=== PATIENT | female | born 1950 | race African-American/Black ===

== ENCOUNTER 2024-11-13 09:51 | Inpatient (IN) | payer MEDICARE ==
[~2024-11-13] VITALS: Ht 153.9 cm; Wt 73.0 kg
[2024-11-13] VITALS (48 sets, daily range): BP systolic 79–145; BP diastolic 46–74; PULSE 78–119; RESP 21–39; TEMP 34.9–34.9724; O2SAT 94–100
[2024-11-13] MEDS: DEXT 5%/0.45% NACL KCL 20MEQ/L 1,000 ML IV ONE (10:15)
[2024-11-13] MEDS: DEXTROSE 50% WATER 50ML SYRINGE IV ONE ×3 (10:15→12:58)
[2024-11-13] MEDS: LEVOFLOXACIN 500MG PREMIX 100 ML IV NR (11:00)
[2024-11-13 11:33] LABS: MEAN PLATELET VOLUME 12.2 fl (7.4-10.4); RED BLOOD CELL COUNT 1.60 mill/uL (4.2-5.4); RED CELL DISTRIBUTION WIDTH 19.0 % (11.6-14.6)
[2024-11-13] MEDS: MORPHINE SULFATE 10 MG/ML INJ (NOT FOR IM USE) IV NR (11:34)
[2024-11-13 11:47] LABS: CREATININE 4.5 mg/dL (0.6-1.0)
[2024-11-13 11:48] LABS: UREA NITROGEN BLOOD 75 mg/dL (9-23)
[2024-11-13 11:49] LABS: ASPARTATE AMINOTRANSFERASE 62 IU/L (<34)
[2024-11-13 11:50] LABS: BILIRUBIN TOTAL 0.4 mg/dL (0.1-1.0); PROTEIN TOTAL 5.9 g/dL (6.0-8.3)
[2024-11-13 11:54] LABS: INR 1.9
[2024-11-13 11:58] LABS: HEMOGLOBIN. 4.8 g/dL (12.0-16.0)
[2024-11-13 11:59] LABS: HEMATOCRIT. 17.8 % (36.0-48.0)
[2024-11-13] MEDS ORDERED: CEFEPIME HCL 1000MG VIAL IM SCH (12:15)
[2024-11-13] MEDS: SODIUM BICARBONATE 8.4% 50MEQ/50ML SYR IV ONE ×3 (12:25→13:55)
[2024-11-13] MEDS: SODIUM CHLORIDE 0.9% (SEPSIS BOLUS) IV ONE (12:25)
[2024-11-13] MEDS: VANCOMYCIN 500 MG in DEXT 5% WATER 100 ML IV SCH (12:28)
[2024-11-13] MEDS: SODIUM BICARBONATE 8.4% 50MEQ/50ML SYR IV STA (12:28)
[2024-11-13] MEDS: INSULIN REGULAR (HUMULIN R) 1000UNITS/10ML VIAL IV ONE ×2 (12:42→12:57)
[2024-11-13] MEDS: SODIUM POLYSTYRENE SULFONATE 15 G/60 ML BOT PO ONE (12:45)
[2024-11-13] MEDS: CALCIUM CHLORIDE 1GM/10ML SYR IV ONE (12:58)
[2024-11-13] MEDS: CEFEPIME 1GM/50ML 50 ML IV SCH (12:59)
[2024-11-13 13:03] LABS: BG BASE EXCESS -19.5 mmol/L (-2.0-3.0); BG CARBOXYHEMOGLOBIN 1.6 % (0.5-1.5); BG DEOXYHEMOGLOBIN 7.5 % (0.0-5.0); BG FLOW(L/min) 9.00 L/min; BG FRACTION INSPIRED OXYGEN 60; BG HCO3 ACT 9.5 mmol/L (21.0-28.0); BG METHEMOGLOBIN 1.1 % (0.5-1.5); BG OXYGEN SATURATION 92.3 % (94.0-98.0); BG OXYHEMOGLOBIN 89.8 % (94.0-98.0); BG PCO2 40.4 mmHg (32.0-45.0); BG PH 6.991 (7.350-7.450); BG PO2 98.2 mmHg (83.0-108.0); BG SAMPLE SITE RIGHT RADIAL; BG TOTAL HEMOGLOBIN 3.8 g/dL (12.0-16.0); BG VENT MODE MASK - SIMPLE
[2024-11-13] MEDS: NOREPINEPHRINE 8MG/250ML PMX 250 ML IV PRN (13:21)
[2024-11-13] MEDS ORDERED: DOPAMINE 400MG/250ML PREMIX 250 ML IV ONE (13:29)
[2024-11-13] MEDS: DOPAMINE 400MG/250ML PREMIX 250 ML IV PRN (13:32)
[2024-11-13 13:40] LABS: BG BASE EXCESS -28.5 mmol/L (-2.0-3.0); BG CARBOXYHEMOGLOBIN 2.0 % (0.5-1.5); BG DEOXYHEMOGLOBIN 3.5 % (0.0-5.0); BG FRACTION INSPIRED OXYGEN 100; BG HCO3 ACT 4.8 mmol/L (21.0-28.0); BG METHEMOGLOBIN 0.1 % (0.5-1.5); BG OXYGEN SATURATION 96.4 % (94.0-98.0); BG OXYHEMOGLOBIN 94.4 % (94.0-98.0); BG PCO2 34.4 mmHg (32.0-45.0); BG PEEP (cmH2O) 5.0 cmH2O; BG PH 6.765 (7.350-7.450); BG PO2 133.4 mmHg (83.0-108.0); BG SAMPLE SITE RIGHT RADIAL; BG TIDAL VOLUME(mL) 450.0 mL; BG TOTAL HEMOGLOBIN 7.8 g/dL (12.0-16.0); BG VENT MODE VENT - PRVC; BG VENT RATE 22.0 set
[2024-11-13 13:42] LABS: LYMPHOCYTES % MANUAL 84.0 % (20.0-60.0); MONOCYTES % MANUAL 16.0 % (2.0-8.0); NUCLEATED RED BLOOD CELLS 2 /100 WBC
[2024-11-13 13:43] LABS: PLATELET ESTIMATE MARKEDLY DECREASED
[2024-11-13] MEDS: SODIUM BICARBONATE 150 MEQ in SODIUM CHLORIDE 0.45% 850 ML IV SCH ×2 (13:45→16:00)
[2024-11-13 13:46] LABS: NEUTROPHILS % MANUAL 0.0 % (45.0-75.0); PLATELET 4 x1000/uL (130-400)
[2024-11-13] MEDS ORDERED: MEROPENEM 1,000 MG in SODIUM CHLORIDE 0.9% 100 ML IV SCH (14:00)
[2024-11-13] MEDS ORDERED: ACETAMINOPHEN 325MG TABLET PO PRN ×2 (14:00)
[2024-11-13] MEDS ORDERED: CLONIDINE 0.1MG TABLET PO PRN (14:00)
[2024-11-13] MEDS ORDERED: NOREPINEPHRINE 32 MG in DEXT 5% WATER 218 ML IV PRN ×3 (14:00→22:00)
[2024-11-13] MEDS ORDERED: ONDANSETRON HCL 4MG/2ML INJ IV PRN (14:00)
[2024-11-13] MEDS ORDERED: MAGNESIUM/ALUMINUM HYDROXIDE/SIMETHICONE 30ML UDC PO PRN (14:00)
[2024-11-13] MEDS ORDERED: PHENYLEPHRINE 100 MG in DEXT 5% WATER 240 ML IV PRN (14:00)
[2024-11-13] MEDS ORDERED: GUAIFENESIN 200MG/10ML SUGAR FREE UDC PO PRN (14:00)
[2024-11-13] MEDS ORDERED: IPRATROPIUM/ALBUTEROL 0.5-3(2.5)MG/3ML NEB HHN PRN (14:00)
[2024-11-13] MEDS ORDERED: DEXTROSE 50% WATER 50ML SYRINGE IV PRN (14:00)
[2024-11-13] MEDS ORDERED: VASOPRESSIN 20 UNIT in SODIUM CHLORIDE 0.9% 99 ML IV PRN (14:00)
[2024-11-13] MEDS ORDERED: DIPHENHYDRAMINE 50MG/ML VIAL IV PRN (14:00)
[2024-11-13] MEDS ORDERED: DOCUSATE SODIUM 100MG CAPSULE PO PRN (14:00)
[2024-11-13] MEDS: PROPOFOL 10MG/ML 100ML 100 ML IV PRN (14:22)
[2024-11-13] MEDS: VASOPRESSIN 20 UNIT in SODIUM CHLORIDE 0.9% 99 ML IV PRN (17:48)
[2024-11-13] MEDS: MEROPENEM 1G/100ML IV SCH (17:58)
[2024-11-13] MEDS: PANTOPRAZOLE SODIUM 40 MG/VIAL IV SCH (18:03)
[2024-11-13] MEDS ORDERED: DEXT 5%/0.45% NACL 1000ML 1,000 ML IV SCH (18:15)
[2024-11-13 18:17] LABS: BG BASE EXCESS -22.5 mmol/L (-2.0-3.0); BG CARBOXYHEMOGLOBIN 1.2 % (0.5-1.5); BG DEOXYHEMOGLOBIN 1.6 % (0.0-5.0); BG FRACTION INSPIRED OXYGEN 100; BG HCO3 ACT 6.8 mmol/L (21.0-28.0); BG METHEMOGLOBIN 0.5 % (0.5-1.5); BG OXYGEN SATURATION 98.4 % (94.0-98.0); BG OXYHEMOGLOBIN 96.7 % (94.0-98.0); BG PCO2 27.4 mmHg (32.0-45.0); BG PEEP (cmH2O) 5.0 cmH2O; BG PH 7.015 (7.350-7.450); BG PO2 148.7 mmHg (83.0-108.0); BG SAMPLE SITE RIGHT RADIAL; BG TIDAL VOLUME(mL) 450.0 mL; BG TOTAL HEMOGLOBIN 7.7 g/dL (12.0-16.0); BG VENT MODE VENT - PRVC; BG VENT RATE 26.0 set
[2024-11-13 19:31] LABS: HEMATOCRIT. 21.9 % (36.0-48.0); MEAN PLATELET VOLUME 8.1 fl (7.4-10.4); RED BLOOD CELL COUNT 2.07 mill/uL (4.2-5.4); RED CELL DISTRIBUTION WIDTH 17.5 % (11.6-14.6)
[2024-11-13 19:54] LABS: HEMOGLOBIN. 6.4 g/dL (12.0-16.0)
[2024-11-13 19:55] LABS: PLATELET 29 x1000/uL (130-400)
[2024-11-13 19:56] LABS: CREATINE KINASE MB FRACTION 6.9 ng/mL (0.5-3.6)
[2024-11-13 20:06] LABS: TROPONIN I HIGH SENSITIVITY 124 ng/L (3.0-34)
[2024-11-13 20:21] LABS: CREATININE 4.0 mg/dL (0.6-1.0); UREA NITROGEN BLOOD 54 mg/dL (9-23)
[2024-11-13 20:22] LABS: LYMPHOCYTES % MANUAL 96.0 % (20.0-60.0); MONOCYTES % MANUAL 4.0 % (2.0-8.0); NEUTROPHILS % MANUAL 0.0 % (45.0-75.0); PLATELET ESTIMATE MARKEDLY DECREASED
[2024-11-13 20:23] LABS: PHOSPHORUS 7.9 mg/dL (2.5-4.9)
[2024-11-13 21:43] LABS: BG BASE EXCESS -21.0 mmol/L (-2.0-3.0); BG CARBOXYHEMOGLOBIN 0.5 % (0.5-1.5); BG DEOXYHEMOGLOBIN 3.1 % (0.0-5.0); BG FRACTION INSPIRED OXYGEN 100; BG HCO3 ACT 6.8 mmol/L (21.0-28.0); BG METHEMOGLOBIN 0.1 % (0.5-1.5); BG OXYGEN SATURATION 96.9 % (94.0-98.0); BG OXYHEMOGLOBIN 96.3 % (94.0-98.0); BG PCO2 22.0 mmHg (32.0-45.0); BG PEEP (cmH2O) 6.0 cmH2O; BG PH 7.107 (7.350-7.450); BG PO2 107.1 mmHg (83.0-108.0); BG SAMPLE SITE LEFT RADIAL; BG TIDAL VOLUME(mL) 450.0 mL; BG TOTAL HEMOGLOBIN 9.5 g/dL (12.0-16.0); BG VENT MODE VENT - AC; BG VENT RATE 26.0 set
[2024-11-13] MEDS ORDERED: SODIUM BICARBONATE 150 MEQ in DEXTROSE 5% WATER 850 ML IV SCH (21:45)
[2024-11-13] MEDS: DEXTROSE 50% WATER 50ML SYRINGE IV SCH ×2 (22:01→23:30)
[2024-11-13 23:29] LABS: MEAN PLATELET VOLUME 7.6 fl (7.4-10.4); RED BLOOD CELL COUNT 1.68 mill/uL (4.2-5.4); RED CELL DISTRIBUTION WIDTH 18.7 % (11.6-14.6)
[2024-11-13] MEDS: DEXT 10% WATER 1,000 ML IV SCH (23:30)
[2024-11-13 23:44] LABS: CREATININE 4.1 mg/dL (0.6-1.0); UREA NITROGEN BLOOD 54 mg/dL (9-23)
[2024-11-13 23:45] LABS: CREATINE KINASE MB FRACTION 7.4 ng/mL (0.5-3.6)
[2024-11-13 23:49] LABS: TROPONIN I HIGH SENSITIVITY 237 ng/L (3.0-34)
[2024-11-14] VITALS (15 sets, daily range): BP systolic 56–177; BP diastolic 14–78; PULSE 58–118; RESP 20–27; TEMP 32.94708; O2SAT 90–98
[2024-11-14] MEDS: SODIUM BICARBONATE 150 MEQ in DEXTROSE 5% WATER 850 ML IV SCH (00:11)
[2024-11-14 01:26] LABS: HEMATOCRIT. 18.0 % (36.0-48.0); HEMOGLOBIN. 5.2 g/dL (12.0-16.0); PLATELET 19 x1000/uL (130-400)
[2024-11-14 07:05] LABS: LYMPHOCYTES % MANUAL 90.0 % (20.0-60.0); MYELOCYTES % 10.0 % (0-0); NUCLEATED RED BLOOD CELLS 1 /100 WBC; PLATELET ESTIMATE DECREASED
[2024-11-14 07:14] LABS: NEUTROPHILS % MANUAL 0.0 % (45.0-75.0)
== END 2024-11-14 01:31 | DRG 871 ==
LOC: ER 09:51 → EDBEDREQ 14:03 → ENRESERV 14:08 → MICUNO 16:34 → MICUSO 20:15
PROVIDERS: ADMIT Internal Medicine; ATTEND Internal Medicine
PROC: 5A12012 Performance of Cardiac Output, Single, Manual (ICD-10-PCS; principal; 2024-11-13)
PROC: 06HY33Z Insertion of Infusion Device into Lower Vein, Percutaneous Approach (ICD-10-PCS; 2024-11-13)
PROC: B54BZZA Ultrasonography of Right Lower Extremity Veins, Guidance (ICD-10-PCS; 2024-11-13)
PROC: 30233K1 Transfusion of Nonautologous Frozen Plasma into Peripheral Vein, Percutaneous Approach (ICD-10-PCS; 2024-11-13)
PROC: 30233N1 Transfusion of Nonautologous Red Blood Cells into Peripheral Vein, Percutaneous Approach (ICD-10-PCS; 2024-11-13)
PROC: 30233R1 Transfusion of Nonautologous Platelets into Peripheral Vein, Percutaneous Approach (ICD-10-PCS; 2024-11-13)
PROC: 5A1935Z Respiratory Ventilation, Less than 24 Consecutive Hours (ICD-10-PCS; 2024-11-13)
PROC: 0BH17EZ Insertion of Endotracheal Airway into Trachea, Via Natural or Artificial Opening (ICD-10-PCS; 2024-11-13)
PROC: 5A12012 Performance of Cardiac Output, Single, Manual (ICD-10-PCS; 2024-11-14)
DX: A41.9 Sepsis, unspecified organism (principal); D61.810 Antineoplastic chemotherapy induced pancytopenia; G92.8 Other toxic encephalopathy; J18.1 Lobar pneumonia, unspecified organism; N17.0 Acute kidney failure with tubular necrosis; R65.21 Severe sepsis with septic shock; J96.01 Acute respiratory failure with hypoxia; E87.20 Acidosis, unspecified; D84.821 Immunodeficiency due to drugs; E46 Unspecified protein-calorie malnutrition; D68.9 Coagulation defect, unspecified; R57.0 Cardiogenic shock; Z66 Do not resuscitate; I46.9 Cardiac arrest, cause unspecified; T45.1X5A Adverse effect of antineoplastic and immunosuppressive drugs, initial encounter; C67.9 Malignant neoplasm of bladder, unspecified; E87.5 Hyperkalemia; I10 Essential (primary) hypertension; Z68.30 Body mass index [BMI] 30.0-30.9, adult; Y92.89 Other specified places as the place of occurrence of the external cause
CPT/HCPCS: 31720; 36415; 36600; 71045; 74018; 80048; 80053; 82140; 82375; 82550; 82553; 82805; 82962; 83605; 83735; 84100; 84145; 84484; 85025; 86850; 86900; 86920; 86927; 87077; 87186; 92950; 93005; 93970; 94002; 94003; 94070; 94664; 96365; 96366; 99285; A4606; J0692; J1265; J1815; J2185; J2270; J2470; J2704; J3373; J3490; J7030; J7050; J7060; J7070; P9016; P9017; P9034